=== PATIENT | female | born 1955 ===

== ENCOUNTER 2018-08-29 14:21 | Inpatient (IN) | payer BC, MEDICARE ==
[2018-08-29 15:29] LABS: BASO # 0.01 K/mm3 (0.0-2.0); BASO % 0.1 % (0.0-3.0); LYMPH # 1.1 (1.2-3.4); LYMPH % 7.9 % (22.0-35.0); MEAN CELL VOLUME 90.9 fl (80.0-105.0); MEAN CORPUSCULAR HEMOGLOBIN 31.1 pg (25.0-35.0); MEAN CORPUSCULAR HGB CONC 34.2 g/dl (31.0-37.0); MEAN PLATELET VOLUME 9.6 fl (7.0-11.0); MONO # 0.6 (0.1-0.6); MONO % 4.4 % (1.0-6.0); RBC 4.18 10^6/uL (3.5-6.1); RED CELL DISTRIBUTION WIDTH 13.4 % (11.5-14.5); WHITE BLOOD COUNT 13.6 10^3/uL (4.5-11.0)
[2018-08-29 15:41] LABS: ALB/GLOB RATIO 1.1 (1.1-1.8); ALBUMIN 3.6 g/dL (3.0-4.8); ALT/SGPT 74 U/L (7-56); AST/SGOT 86 U/L (14-36); BLOOD UREA NITROGEN 14 mg/dL (7-21); CALCIUM 8.8 mg/dL (8.4-10.5); GFR NON-AFRICAN AMERICAN > 60
[2018-08-29 15:43] LABS: VENOUS BLOOD GAS BASE EXCESS 6.2 mmol/L (0.0-2.0); VENOUS BLOOD GAS PO2 26 mm/Hg (30-55); VENOUS BLOOD PH 7.39 (7.32-7.43)
[2018-08-29] MEDS ORDERED: Sodium Chloride 0.9% 1,000 ML IV STA (15:46)
[2018-08-29 15:52] LABS: B-TYPE NATRIURETIC PEPTIDE 190 pg/mL (0-450); TROPONIN I < 0.01 ng/mL
[2018-08-29] MEDS ORDERED: Vancomycin 500mg in NS 500 MG/100 ML BAG IVPB STA (16:09)
[2018-08-29] MEDS ORDERED: VANCOMYCIN IV STA (16:24)
[2018-08-29] MEDS ORDERED: SODIUM CHLORIDE 0.9% IV STA (16:24)
[2018-08-29] MEDS ORDERED: Cefepime IV 2 gm in NS 2 GM/100 ML BAG IVPB STA (16:28)
[2018-08-29] MEDS ORDERED: Sodium Chloride 0.45% 1,000 ML IV SCH (16:45)
[2018-08-29 17:32] LABS: URINE BILIRUBIN NEGATIVE (NEGATIVE); URINE BLOOD TRACE-LYSED (NEGATIVE); URINE GLUCOSE (UA) NEGATIVE (NEGATIVE); URINE LEUKOCYTE ESTERASE MODERATE Leu/uL (NEGATIVE); URINE PROTEIN TRACE mg/dL (<30 mg/dL)
[2018-08-29 17:35] LABS: URINE APPEARANCE SLIGHT-CLOUDY (CLEAR); URINE COLOR YELLOW (YELLOW)
--- NOTE | 2018-08-29 17:45 | ED PDOC ---
Arrival/HPI - General Chief Complaint: Fever Time Seen by Provider: 08/29/18 14:27 Historian: Family - History of Present Illness Narrative History of Present Illness (Text): 08/29/18 17:43 63-year-old female with a history of seizures and dementia presents today with fever at home for the past 2 days and cough. Patient's daughter states that the patient has not been acting right. States she has stopped eating for the past 2 days. There is been no vomiting or diarrhea. Patient's daughter states the patient urinated this morning. Daughter is concerned because this is an acute change from baseline. Past Medical History - Provider Review Nursing Documentation Reviewed: Yes Primary Care Provider: Brad Graf - Travel History Have you recently traveled outside [place] w/in the past 3 mons?: No - Reproductive Menopause: Yes - Neurological Hx Neurological Disorder: Yes Hx Dementia: Yes Hx Seizures: Yes - Psychiatric Hx Substance Use: No Family/Social History - Physician Review Nursing Documentation Reviewed: Yes Family/Social History: Unknown Family HX Smoking Status: Never Smoked Hx Alcohol Use: No Hx Substance Use: No Allergies/Home Meds Allergies/Adverse Reactions: Allergies sea food Allergy (Uncoded 08/29/18 14:45) RASH Home Medications: Home Meds Medication Instructions Recorded Confirmed levETIRAcetam [Keppra] 250 mg PO BID 08/29/18 08/29/18 Review of Systems - Review of Systems Systems not reviewed;Unavailable: Altered Mental Status Constitutional: Fatigue, Fevers Respiratory: Cough. absent: SOB Gastrointestinal: absent: Diarrhea, Vomiting Physical Exam Vital Signs Reviewed: Yes Vital Signs Temp Pulse Resp BP Pulse Ox 08/29/18 14:47 96.9 F L 100 H 20 102/64 98 Temperature: Afebrile Blood Pressure: Normal Pulse: Tachycardic Respiratory Rate: Normal Appearance: Positive for: Well-Appearing, Non-Toxic, Cachectic Pain Distress: None Mental Status: Positive for: Lethargic - Systems Exam Head: Present: Atraumatic Pupils: Present: PERRL Mouth: Present: Moist Mucous Membranes Respiratory/Chest: Present: Rhonchi. No: Clear to Auscultation, Wheezes, Retracting, Tachypneic Cardiovascular: Present: Tachycardic Abdomen: No: Tenderness, Distention, Rebound, Guarding Back: Present: Normal Inspection Neurological: Present: Other (pt is non verbal) Skin: Present: Warm, Dry, Normal Color Psychiatric: Present: Alert, Lethargic Medical Decision Making ED Course and Treatment: 08/29/18 17:46 63yr old female found to have fevers at home, tachycardic in er. case discussed with dr. Brush. straight cath; no urine output. cbc; wbc; 13.6 cmp; na; 128 lactic acid; 2.6 cxr; no infiltrate. EKG: Normal sinus rhythm at [address] elevations QTC 428 normal axis blood cultures pending Code sepsis called; as patient with leukocytosis and tachycardia with elevated lactate; 2.6 pt started on 30cc/kg bolus; pt started on vancomycin and cefepime IV. shortly after fluids; patient became more alert; vitals improved. UA; + nitrates, + leukocytes Head ct; FINDINGS: Examination is limited by motion artifact. HEMORRHAGE: No acute parenchymal, subarachnoid or extra-axial hemorrhage. Moderate diffuse BRAIN: Moderate diffuse and confluent chronic periventricular white matter ischemic changes seen extending peripherally into the deep and subcortical white matter both cerebral hemispheres. There are also low-attenuation changes seen in the brainstem part of which is likely due to crossing streak and beam hardening artifact though chronic ischemia not excluded. VENTRICLES: There is marked dilatation of the 3rd and lateral ventricles with normal- appearing 4th ventricle. Findings could be secondary in part due to significant central volume loss however chronic compensated obstructive hydrocephalus (communicating type) to be excluded. The possibility of normal pressure hydrocephalus to be considered only if the clinical triad of dementia, ataxia and incontinence present. CALVARIUM: Calvarium appears grossly intact. PARANASAL SINUSES: Unremarkable as visualized. No significant inflammatory changes. MASTOID AIR CELLS: Unremarkable as visualized. No inflammatory changes. OTHER FINDINGS: None. IMPRESSION: Moderate diffuse and confluent chronic periventricular white matter ischemic changes seen extending peripherally into the deep and subcortical white matter both cerebral hemispheres. There are also low-attenuation changes seen in the brainstem part of which is likely due to crossing streak and beam hardening artifact though chronic ischemia not excluded. Marked dilatation of the 3rd and lateral ventricles with normal-appearing 4th ventricle. Findings could be secondary in part due to significant central volume loss however chronic compensated obstructive hydrocephalus (communicating type) to be excluded. The possibility of normal pressure hydrocephalus to be considered only if the clinical triad of dementia, ataxia and incontinence present. pt seen and evaluated by dr. graf at beside; accepts admission for sepsis. impression; urosepsis admit tele. Reassessment Condition: Re-examined, Improved - Lab Interpretations Lab Results: pO2 26 mm/Hg (30-55) L 08/29/18 15:30 VBG pH 7.39 (7.32-7.43) 08/29/18 15:30 VBG pCO2 54.0 (40-60) 08/29/18 15:30 VBG HCO3 32.7 mmol/l (21-28) H 08/29/18 15:30 VBG Total CO2 34.4 mmol.L (22-28) H 08/29/18 15:30 VBG O2 Sat (Calc) 44.6 % (40-65) 08/29/18 15:30 VBG Base Excess 6.2 mmol/L (0.0-2.0) H 08/29/18 15:30 VBG Potassium 5.4 mmol/L (3.6-5.2) H 08/29/18 15:30 Sodium 125.0 mmol/L (132-148) L 08/29/18 15:30 Chloride 91.0 mmol/L (98-107) L 08/29/18 15:30 Glucose 111 mg/dl (65-105) H 08/29/18 15:30 Lactate 2.6 mmol/L (0.7-2.1) H 08/29/18 15:30 FiO2 21.0 % 08/29/18 15:30 Crit Value Called To Rona lane 08/29/18 15:30 Crit Value Called By Shauna 08/29/18 15:30 Blood Gas Notified Time 3042 08/29/18 15:30 Troponin I < 0.01 ng/mL 08/29/18 15:20 NT-Pro-B Natriuret Pep 190 pg/mL (0-450) 08/29/18 15:20 Total Bilirubin 0.5 mg/dL (0.2-1.3) 08/29/18 15:20 AST 86 U/L (14-36) H 08/29/18 15:20 ALT 74 U/L (7-56) H 08/29/18 15:20 Alkaline Phosphatase 84 U/L (38-126) 08/29/18 15:20 Total Protein 6.8 g/dL (5.8-8.3) 08/29/18 15:20 Albumin 3.6 g/dL (3.0-4.8) 08/29/18 15:20 Globulin 3.2 gm/dL 08/29/18 15:20 Albumin/Globulin Ratio 1.1 (1.1-1.8) 08/29/18 15:20 Urine Color Yellow (YELLOW) 08/29/18 17:20 Urine Appearance Slight-cloudy (CLEAR) 08/29/18 17:20 Urine pH 6.0 (4.7-8.0) 08/29/18 17:20 Ur Specific [place] 1.010 (1.005-1.035) 08/29/18 17:20 Urine Protein Trace mg/dL (<30 mg/dL) H 08/29/18 17:20 Urine Glucose (UA) Negative mg/dL (NEGATIVE) 08/29/18 17:20 Urine Ketones Trace mg/dL (NEGATIVE) H 08/29/18 17:20 Urine Blood Trace-lysed (NEGATIVE) H 08/29/18 17:20 Urine Nitrate Positive (NEGATIVE) H 08/29/18 17:20 Urine Bilirubin Negative (NEGATIVE) 08/29/18 17:20 Urine Urobilinogen 1.0 E.U./dL (<1 E.U./dL) H 08/29/18 17:20 Ur Leukocyte Esterase Moderate Mesha/uL (NEGATIVE) H 08/29/18 17:20 - RAD Interpretation Radiology Orders: 08/29/18 15:20 CHEST PORTABLE [RAD] Stat 08/29/18 16:01 HEAD W/O CONTRAST [CT] Stat - Medication Orders Current Medication Orders: Vancomycin HCl 450 mg/ Sodium (Chloride) 100 mls @ 60 mls/hr IV .Q1H40M STA Stop: 08/29/18 18:03 Cefepime HCl (Maxipime 1gm) 1 gm in 100 mls @ 100 mls/hr IVPB Q8 BRANT; Protocol Sodium Chloride (Sodium Chloride 0.45%) 1,000 mls @ 60 mls/hr IV .[id number] BRANT Levetiracetam (Keppra) 250 mg PO BID BRANT Discontinued Medications Sodium Chloride (Sodium Chloride 0.9%) 1,000 mls @ 999 mls/hr IV .Q1H1M STA Stop: 08/29/18 16:46 Sodium Chloride (Sodium Chloride 0.9%) 930 mls @ 999 mls/hr IV .Q56M STA Stop: 08/29/18 16:41 Last Admin: 08/29/18 16:03 Dose: 999 mls/hr eMAR Start Stop Document 08/29/18 16:03 [email or web address] (Rec: 08/29/18 16:03 [email or web address] [id number]) Intravenous Solution Start Date 08/29/18 Start Time 16:03 Cefepime HCl (Maxipime 2gm) 2 gm in 100 mls @ 100 mls/hr IVPB STAT STA; Protocol Stop: 08/29/18 17:27 Last Admin: 08/29/18 16:38 Dose: 100 mls/hr eMAR Start Stop Document 08/29/18 16:38 [email or web address] (Rec: 08/29/18 16:40 [email or web address] [id number]) Intravenous Solution Start Date 08/29/18 Start Time 16:40 Disposition/Present on Arrival - Present on Arrival Any Indicators Present on Arrival: No History of DVT/PE: No History of Uncontrolled Diabetes: No Urinary Catheter: No History of Decub. Ulcer: No History Surgical Site Infection Following: None - Disposition Have Diagnosis and Disposition been Completed?: Yes Diagnosis: Sepsis, Urinary tract infection Disposition: HOSPITALIZED Disposition Time: 18:00 Patient Plan: Admission Condition: FAIR Discharge Instructions (ExitCare): Sepsis (ED), Urinary Tract Infections in Adults
--- NOTE | 2018-08-29 17:54 | CT ---
Date of service: 08/29/2018 PROCEDURE: CT HEAD WITHOUT CONTRAST. HISTORY: AMS/ fever 2 days COMPARISON: No prior study available comparison TECHNIQUE: Axial computed tomography images were obtained through the head/brain without intravenous contrast. Radiation dose: Total exam DLP = 1276.43 mGy-cm. This CT exam was performed using one or more of the following dose reduction techniques: Automated exposure control, adjustment of the mA and/or kV according to patient size, and/or use of iterative reconstruction technique. FINDINGS: Examination is limited by motion artifact. HEMORRHAGE: No acute parenchymal, subarachnoid or extra-axial hemorrhage. Moderate diffuse BRAIN: Moderate diffuse and confluent chronic periventricular white matter ischemic changes seen extending peripherally into the deep and subcortical white matter both cerebral hemispheres. There are also low-attenuation changes seen in the brainstem part of which is likely due to crossing streak and beam hardening artifact though chronic ischemia not excluded. VENTRICLES: There is marked dilatation of the 3rd and lateral ventricles with normal-appearing 4th ventricle. Findings could be secondary in part due to significant central volume loss however chronic compensated obstructive hydrocephalus (communicating type) to be excluded. The possibility of normal pressure hydrocephalus to be considered only if the clinical triad of dementia, ataxia and incontinence present. CALVARIUM: Calvarium appears grossly intact. PARANASAL SINUSES: Unremarkable as visualized. No significant inflammatory changes. MASTOID AIR CELLS: Unremarkable as visualized. No inflammatory changes. OTHER FINDINGS: None. IMPRESSION: Moderate diffuse and confluent chronic periventricular white matter ischemic changes seen extending peripherally into the deep and subcortical white matter both cerebral hemispheres. There are also low-attenuation changes seen in the brainstem part of which is likely due to crossing streak and beam hardening artifact though chronic ischemia not excluded. Marked dilatation of the 3rd and lateral ventricles with normal-appearing 4th ventricle. Findings could be secondary in part due to significant central volume loss however chronic compensated obstructive hydrocephalus (communicating type) to be excluded. The possibility of normal pressure hydrocephalus to be considered only if the clinical triad of dementia, ataxia and incontinence present.
[2018-08-29 18:12] LABS: URINE BACTERIA MANY /hpf; URINE EPITHELIAL CELLS 0 - 2 /hpf (0-5); URINE RBC 0 - 2 /hpf (0-2)
[2018-08-29 19:51] LABS: VENOUS BLOOD GAS BASE EXCESS 2.8 mmol/L (0.0-2.0); VENOUS BLOOD GAS PO2 58 mm/Hg (30-55); VENOUS BLOOD PH 7.32 (7.32-7.43)
--- NOTE | 2018-08-29 21:14 | HP ---
DATE OF EXAM: 08/29/2018 HISTORY OF PRESENT ILLNESS: This is a 63-year-old white female who I saw in the emergency room today. She presented from home with a fever for 2 days and a cough. The daughter who takes care of her says she has not been acting the same, she stopped eating 2 days ago. No vomiting or diarrhea. She did urinate that morning, but this is an acute change for her. PAST MEDICAL HISTORY: She has a past medical history of seizures, dementia. PAST SURGICAL HISTORY: Unknown surgical history. FAMILY HISTORY Unknown family history. SOCIAL HISTORY: No smoker. No drinking. No drugs. MEDICATIONS: She takes Keppra 250 mg twice a day for the seizures. REVIEW OF SYSTEMS: Unable to do review of systems due to altered mental status, she just stares. Very fatigued and fevered by the daughter with a cough, not eating for 2 days. PHYSICAL EXAMINATION VITAL SIGNS: A 96.9 temperature, 100 pulse, 20 respiratory rate, 102/64 blood pressure, and 98% O2 sat. GENERAL: She has a positive nontoxic, cachectic, nonverbal, lethargic. HEENT: Head is atraumatic, normocephalic. Mucous membranes are dry. Extraocular muscles are intact. Pupils equally reactive to light. LUNGS: Decreased breath sounds bilaterally. Occasional rhonchi. HEART: Tachycardic, regular. ABDOMEN: Soft, nontender, positive bowel sounds. No guarding, no rebound or CVA tenderness. EXTREMITIES: Mildly contracted lower extremities. SKIN: She has got turgor, but no apparent rashes or ulcers are appreciated. NEUROLOGIC: Alert, lethargic, nonverbal. The daughter takes complete care of her, she is bedridden. LABORATORY DATA: EKG was normal sinus rhythm at 79, it was as high as 120 the pulse. White count is 13.6. Sodium is 128. Lactic acid was 2.6. I did a Code Sepsis in the emergency room. The urine had nitrates and leukocytes. The impression of the CT scan of the head was a possibility of chronic compensated obstructive hydrocephalus. She has a 13.6 white count, 13 hemoglobin, 38 hematocrit with 180 platelets. Lactate was 2.6 and went up to 3.2. A 128 sodium, 4.6 potassium, BUN 14, creatinine 0.4, GFR is greater than 60, sugar is 112, calcium is 8.8, total bili is 0.5. AST is 86, ALT is 74, alk phos is 84. Lactate dehydrogenase is 583. Troponin I is less than 0.01. BNP is 190, total protein is 6.8. Urine showed moderate leukocytes, many bacteria, positive nitrates, total of 57. ASSESSMENT AND PLAN: Urinary tract infection, possible sepsis versus systemic inflammatory response syndrome. She is presently on intravenous fluids. She was placed on cefepime and given a dose of vancomycin. There is a consult with Infectious Disease. I have placed her on her altered GI pureed diet. I will order for labs tomorrow. She is being admitted for a urinary tract infection, sepsis picture. Brad Barrios DO
--- NOTE | 2018-08-29 21:49 | PCM.SEPTIC ---
Sepsis Progress Note - Reassessment Type Date of Evaluation: 08/29/18 Time of Evaluation: 21:49 Reassessment Type: Non-invasive reassessment - Non Invasive Reassessment Were the most recent vital sign reviewed: Yes Vital Sign (Latest): Temp Pulse Resp BP Pulse Ox 96.9 F L 99 H 18 100/63 97 08/29/18 14:47 08/29/18 17:55 08/29/18 17:55 08/29/18 17:55 08/29/18 17:55 Cardiovascular: Yes: Regular Rate, Rhythm Respiratory: Yes: Normal Breath Sounds. No: Crackles, Rales, Rhonchi, Stridor, Wheezing Capillary Refill: Normal (Less than 2 sec) Pulses: Normal Radial, Normal Dorsalis Pedis, Normal Posterior Tibialis Skin: Normal Color, Warm, Dry
[2018-08-29] MEDS ORDERED: Cefepime 1gm in NS 100ml 1 GM/100 ML BAG IVPB SCH (22:00)
[2018-08-30] MEDS: Cefepime 1gm in NS 100ml 1 GM/100 ML BAG IVPB SCH ×3 (05:11→21:32)
[2018-08-30 07:38] LABS: HEMOGLOBIN 11.3 g/dL (12.0-16.0); MEAN CELL VOLUME 91.4 fl (80.0-105.0); MEAN CORPUSCULAR HEMOGLOBIN 31.2 pg (25.0-35.0); MEAN CORPUSCULAR HGB CONC 34.1 g/dl (31.0-37.0); MEAN PLATELET VOLUME 9.7 fl (7.0-11.0); RBC 3.62 10^6/uL (3.5-6.1); RED CELL DISTRIBUTION WIDTH 13.7 % (11.5-14.5); WHITE BLOOD COUNT 13.9 10^3/uL (4.5-11.0)
[2018-08-30 07:42] LABS: VENOUS BLOOD GAS BASE EXCESS 2.8 mmol/L (0.0-2.0); VENOUS BLOOD GAS PO2 209 mm/Hg (30-55); VENOUS BLOOD PH 7.36 (7.32-7.43)
[2018-08-30 08:02] LABS: ALBUMIN 2.8 g/dL (3.0-4.8); ALT/SGPT 62 U/L (7-56); AST/SGOT 61 U/L (14-36); BLOOD UREA NITROGEN 10 mg/dL (7-21); CALCIUM 8.1 mg/dL (8.4-10.5); GFR NON-AFRICAN AMERICAN > 60
--- NOTE | 2018-08-30 09:22 | RAD ---
Date of service: 08/29/2018 HISTORY: fever/cough COMPARISON: No prior. TECHNIQUE: 1 view obtained. FINDINGS: LUNGS: Questionable right suprahilar opacity. PLEURA: No significant pleural effusion identified, no pneumothorax apparent. CARDIOVASCULAR: Aortic atherosclerotic calcifications. Cardiomediastinal silhouette within normal limits. OSSEOUS STRUCTURES: Spinal degenerative changes. VISUALIZED UPPER ABDOMEN: Normal. OTHER FINDINGS: None. IMPRESSION: Questionable right suprahilar opacity.
--- NOTE | 2018-08-30 11:54 | CARD ---
APPROVED REPORT Date of service: 08/29/2018 EKG Measurement Heart [id number] <Conclusion> Normal sinus rhythm Septal infarct, age undetermined Abnormal ECG
--- NOTE | 2018-08-30 13:01 | CON ---
DATE: 08/30/2018 The patient is seen in Room #262, Bed #2. CHIEF COMPLAINT: Fever times several days. HISTORY OF PRESENT ILLNESS: This is a 63-year-old female who has advanced Alzheimer's dementia and seizures. The daughter is at the bedside, who is the renderer at home, states that the patient had been having fevers at home, unable to tell if she has any dysuria or frequency. However, she had been coughing and she was congested as per her daughter and it is difficult to obtain any history from the patient and the daughter says the patient does not communicate. The patient does ambulate with assistance if she is unable to ambulate on her own and she is bedridden most of the time and does not verbalize. REVIEW OF SYSTEMS: A 12-point review of systems is performed. PAST MEDICAL HISTORY: Significant for Alzheimer's dementia which is advanced and seizures. PAST SURGICAL HISTORY: Noncontributory. ALLERGIES: SHE IS ALLERGIC TO SEAFOOD. HOME MEDICATIONS: Medications at home include Keppra. PHYSICAL EXAMINATION: GENERAL: On exam, the patient is in bed, appearing chronically ill, debilitated, cachectic, with wasting syndrome. VITAL SIGNS: Temperature of 97, she had a temperature of 96.9 in the emergency room and her heart rate was 100, respiratory rate of 20, blood pressure of 90/58. Saturation at 93%. HEENT: Examination of HEENT is unremarkable. NECK: Supple. LUNGS: Have decreased breath sounds. HEART: Normal S1, S2. ABDOMEN: Soft. LABORATORY DATA: Laboratory examination reveals a white count of 13,600, hemoglobin of 13, platelets of 180, BUN of 14, creatinine of 0.4, AST is 86, ALT is and urinalysis is noted, 2-5 WBC's, many bacteria, cloudy urine, positive nitrites, moderate leukocyte esterase. She does not have a Winkler at home and the patient had a chest x-ray, the result is pending. ASSESSMENT AND PLAN: This is a 63-year-old female with dementia and Alzheimer's, presenting with LFT elevation and positive urinalysis and negative chest x-ray, lactic acidosis. 1. Sepsis, most likely urine as the source, in a patient who is end-stage, cachectic, wasting syndrome with a BMI of only 14. Overall prognosis is quite poor. We will treat the patient with cefepime pending blood and urine cultures and we will follow very closely with you. The case was discussed with the patient's daughter at length. Baron Acevedo MD
--- NOTE | 2018-08-30 14:03 | PN ---
DATE: 08/30/2018 SUBJECTIVE: She is resting comfortably in bed. The daughter is with her, she stays with her 24 hours, takes very, very good care of her. She is not awake at this time, but she has been fed and was eating much better today. She watched a little bit of television. She had IV fluids, Keppra, Maxipime IV. She continues to take her Keppra, she has a seizure history. doing well considering her situation. PHYSICAL EXAMINATION: VITAL SIGNS: 97.6 temperature, 75 pulse, 98/64 blood pressure, 19 respiratory rate, and 93% to 95% O2 sat on room air. HEENT: Head is atraumatic and normocephalic. Throat is a little bit moist. HEART: Regular rate. LUNGS: Decreased breath sounds, but clear. ABDOMEN: Soft. EXTREMITIES: Well contracted. She is about 77 pounds, 80 pounds all together. LABORATORY DATA: She has a urine that has many bacteria. 129 sodium, little bit better. BUN is 10, creatinine 0.3, GFR is greater than 60, sugar is 79, calcium is 8.1, total bili is 0.5. AST is 61, ALT is 62, alk phos is 83. The troponin I is less than 0.01, BNP is 190, total protein 5.7. White count 13.9, up a little bit, started on antibiotics, 11.3 hemoglobin, 32.1 hematocrit, 170 platelets. Lactate was 2.6, went to 3.2, now dropped to 1.8. ASSESSMENT AND PLAN: I will change the intravenous antibiotics around from half normal to normal. I will check her labs tomorrow. Continue with intravenous fluids and feeding her on antibiotics and see her sepsis picture and urinary tract infection. Brad Barrios DO DENNYS
[2018-08-30] MEDS: Sodium Chloride 0.9% 500 ML IV SCH ×2 (15:39→21:24)
[2018-08-31] MEDS: Cefepime 1gm in NS 100ml 1 GM/100 ML BAG IVPB SCH ×3 (05:27→21:51)
[2018-08-31 07:41] LABS: HEMOGLOBIN 10.7 g/dL (12.0-16.0); MEAN CELL VOLUME 91.5 fl (80.0-105.0); MEAN CORPUSCULAR HEMOGLOBIN 30.5 pg (25.0-35.0); MEAN CORPUSCULAR HGB CONC 33.3 g/dl (31.0-37.0); MEAN PLATELET VOLUME 9.5 fl (7.0-11.0); RBC 3.51 10^6/uL (3.5-6.1); RED CELL DISTRIBUTION WIDTH 13.7 % (11.5-14.5); WHITE BLOOD COUNT 8.2 10^3/uL (4.5-11.0)
[2018-08-31 07:44] LABS: ALB/GLOB RATIO 0.9 (1.1-1.8); ALBUMIN 2.8 g/dL (3.0-4.8); ALT/SGPT 55 U/L (7-56); AST/SGOT 40 U/L (14-36); BLOOD UREA NITROGEN 7 mg/dL (7-21); CALCIUM 8.1 mg/dL (8.4-10.5); GFR NON-AFRICAN AMERICAN > 60
[2018-08-31] MEDS: Sodium Chloride 0.9% 500 ML IV SCH ×2 (11:45→13:21)
--- NOTE | 2018-08-31 13:27 | PN ---
DATE: 08/31/2018 SUBJECTIVE: She is resting comfortably in bed. She is on Keppra, Maxipime IV, and IV fluids. She is eating a little bit better. She is improving. PHYSICAL EXAMINATION: VITAL SIGNS: She has a 97.5 temperature, 74 pulse, 112/75 blood pressure, 19 respiratory rate, and 98% O2 saturation. HEENT: Head is atraumatic and normocephalic. HEART: Regular rate. LUNGS: Clear to auscultation with decreased breath sounds. ABDOMEN: Soft. EXTREMITIES: No edema. LABORATORY DATA: She has 8.2 white count, it came down nicely; 10.7 hemoglobin and 32.1 hematocrit with a 173 platelets. Her lactate came down also to 1.8 from 3.2. Urine has moderate leukocytes and many bacteria. A 133 sodium is better, potassium 4.1, BUN 7, creatinine 0.4, GFR is greater than 60, and sugar is 81. Calcium is 8.1, total bili is 0.4, AST is 40, ALT is 65, alk phos 82, total protein is 5.7, all good. ASSESSMENT AND PLAN: She is being seen by Infectious Disease. I think another day or two of antibiotics will be great. I want her to get out of bed to chair if it is possible. She is a 63-year-old with dementia, Alzheimer's, and bedridden. Daughter takes care of her. She has elevated liver function tests. Positive urinalysis, end-stage dementia with cachectic, but she started to eat better, and she is opening her eyes from time to time, so she is slowly improving. Brad Barrios DO
[2018-09-01] MEDS: Cefepime 1gm in NS 100ml 1 GM/100 ML BAG IVPB SCH ×2 (05:39→14:04)
[2018-09-01 05:52] VITALS: O2SAT 99
[2018-09-01 07:20] LABS: MEAN CELL VOLUME 91.8 fl (80.0-105.0); MEAN CORPUSCULAR HGB CONC 33.7 g/dl (31.0-37.0); MEAN PLATELET VOLUME 9.5 fl (7.0-11.0); RBC 3.55 10^6/uL (3.5-6.1); RED CELL DISTRIBUTION WIDTH 13.6 % (11.5-14.5); WHITE BLOOD COUNT 5.4 10^3/uL (4.5-11.0)
[2018-09-01 07:33] LABS: ALT/SGPT 51 U/L (7-56); AST/SGOT 38 U/L (14-36); BLOOD UREA NITROGEN 6 mg/dL (7-21); CALCIUM 8.4 mg/dL (8.4-10.5); GFR NON-AFRICAN AMERICAN > 60
--- NOTE | 2018-09-01 07:53 | PN ---
DATE: 09/01/2018 SUBJECTIVE: The patient is in bed, in no acute distress, nontoxic. PHYSICAL EXAMINATION: VITAL SIGNS: Temperature is 97, blood pressure is 120/80, respiratory of 18, heart rate of 71. HEENT: Unremarkable. NECK: Supple. LUNGS: Have decreased breath sounds. HEART: Normal S1, S2. ABDOMEN: Soft. LABORATORY DATA: Laboratory examination reveals the blood cultures negative. Urine cultures are negative. White count is 8.2 as of yesterday. Procalcitonin 0.13. Urinalysis is noted. Microbiology is reviewed. Review of orders reveals the patient to be on cefepime. ASSESSMENT AND PLAN: This is a 63-year-old with sepsis, most likely urine as the source with end-stage cachectic wasting with a BMI of only 14 and the patient with advanced Alzheimer's dementia, the patient with lactic acidosis, negative procalcitonin, negative urine culture. Today is day #3. May switch to p.o. antibiotics upon discharge. The patient is unable to swallow pills as per daughter who was at the bedside. Baron Acevedo MD
[2018-09-01 11:38] VITALS: BP 102/60; PULSE 77; RESP 18; TEMP 97.9
--- NOTE | 2018-09-01 14:55 | DS ---
HISTORY OF PRESENT ILLNESS: The patient is discharged today. She did much better with IV antibiotics, IV fluids and Keppra. I spoke with Dr. Acevedo to stop the cefepime or put her on Augmentin, oral liquid 500 twice a day for seven more days. I discussed this with the daughter, she will know that and she will be discharged today. PHYSICAL EXAMINATION: VITAL SIGNS: 97.6 temperature, 71 pulse, 123/80 blood pressure, 19 respiratory rate, 99% O2 sat on room air. HEENT: Head is atraumatic, normocephalic. HEART: Regular rate. LUNGS: Decreased breath sounds, but clear. ABDOMEN: Soft. EXTREMITIES: Well contracted thin and frail, but she is eating better, more alert and awake definitely improved. LABORATORY DATA: She has a white count of 5.4, hemoglobin 11, hematocrit 32.6, platelets of 201. Sodium 135, potassium 4.8, BUN is 6, creatinine 0.4, GFR is greater than 60, sugar is 58, calcium 8.4. AST is 38, ALT is 51, alk phos 83, total protein 6.1. ASSESSMENT AND PLAN: for sepsis UTI, to be discharged today, on Augmentin and followup as an outpatient. Brad Barrios DO DENNYS
--- NOTE | 2018-09-02 08:16 | PN ---
DATE: 08/31/2018 SUBJECTIVE: The patient is seen earlier today, no acute distress. No fevers. No chills. PHYSICAL EXAMINATION: VITAL SIGNS: Temperature is 97, blood pressure is 112/70, respiratory rate of 18. HEENT: Unremarkable. NECK: Supple. LUNGS: Have decreased breath sounds. HEART: Normal S1 and S2. ABDOMEN: Soft, nontender. LABORATORY DATA: Reveals the patient to have white count of 8.2, hemoglobin of 10, platelets of 173. BUN of 7, creatinine of 0.4. Urinalysis is noted and microbiology reveals the blood and urine cultures are negative. Review of orders reveals the patient to be on cefepime. Dr. Barrios's note is reviewed. ASSESSMENT AND PLAN: This is a 63-year-old female with advanced Alzheimer's dementia and seizures who was admitted with sepsis with urine as the source, with end-stage cachectic/wasting syndrome, with a BMI of only 14. The patient also with bronchitis with a negative chest x-ray, questionable right suprahilar opacity and a questionable community-acquired pneumonia. The patient appears to be improving although the urine cultures are negative. The patient has a normal BMP. We will check on the procalcitonin. We will make further recommendations. Overall prognosis is poor. Baron Acevedo MD
== END 2018-09-01 15:30 | disposition home or self-care (01) | DRG 872 ==
LOC: ED 14:21 → ERH 17:41 → 2RNO 21:17
PROVIDERS: ADMIT Family Medicine; ATTEND Family Medicine
DX: A41.9 Sepsis, unspecified organism (principal); N39.0 Urinary tract infection, site not specified; E87.2 Acidosis; R64 Cachexia; Z68.1 Body mass index [BMI] 19.9 or less, adult; G30.9 Alzheimer's disease, unspecified; F02.80 Dementia in other diseases classified elsewhere, unspecified severity, without behavioral disturbance, psychotic disturbance, mood disturbance, and anxiety; R56.9 Unspecified convulsions; Z74.01 Bed confinement status